=== PATIENT | female | born 1955 | race Caucasian/White ===

== ENCOUNTER → 2016-10-25 | Day surgery (SDC) | payer BC ==
[~2016-10-25] MED LIST: ACTOPLUS MET 151 TA2 PO; CINNAMON ALPHA1 EACH PO; DITROPAN5 MG PO; GINGER500 MG PO; METFORMIN PO; PROBIOTIC-DIGE1 EACH PO; TUMERIC PO; VITAMIN D400 UNI2 PO; VITAMIN E PO; [UNRECOGNIZED DRUG - OTHER] PO
--- NOTE | ~2016-10-25 | OR ---
Unit #: [id number] #: [id number] Patient: ALEISHA FERGUSON [id number] [address] [id number] MR#: [id number] NAME: ALEISHA FERGUSON. ROOM: Date of Procedure: 10/25/2016 Admission Date: 10/25/2016 Surgeon: Pierre Pena M.D. : 1955 Attending Physician: Pierre Pena M.D. Primary Care Physician: Kassandra Dooley M.D. OPERATIVE REPORT PREOPERATIVE DIAGNOSES 1. History of colonic polyps. 2. Screening colonoscopy. POSTOPERATIVE DIAGNOSES 1. History of colonic polyps. 2. Screening colonoscopy. PROCEDURE PERFORMED Colonoscopy to cecum. ANESTHESIA Monitored anesthesia care. FINDINGS The patient was found to have few scattered sigmoid diverticula. Mild internal hemorrhoids. SPECIMENS None. COMPLICATIONS None apparent. CONDITION The patient tolerated the procedure well. INDICATIONS FOR PROCEDURE The patient is a 61-year-old white female, who presents at this time for screening colonoscopy. She was found to have a tubular adenoma at 65 cm, 3 to 4 years ago. She presents at this time for evaluation by colonoscopy. DESCRIPTION OF PROCEDURE After obtaining informed consent, the patient was brought to the endoscopy suite and after adequate monitored anesthesia care, had the colonoscope placed through the anus and slowly advanced to the level of the cecum without difficulty with the lumen always in view. The cecum was normal as was the ileocecal valve. The ascending colon was normal as was the hepatic flexure, transverse colon, splenic flexure, and descending colon. In the sigmoid colon, there were few scattered sigmoid diverticula present. There were not very numerous and not very deep. The Unit #: [id number] #: [id number] Patient: ALEISHA FERGUSON rectosigmoid and rectum were all within normal limits. On retroflexing in the rectum to the anal rectal junction, the patient was found to have mild internal hemorrhoids. The scope was removed without difficulty. On digital examination, there was good sphincter tone. No masses palpable. The patient went from the endoscopy suite to the recovery area in stable condition. RECOMMENDATIONS Diverticular sheet given. High-fiber diet, lots of liquids, tucks or wipes p.r.n. Follow up as needed. Dictated by... Debbie Rico/lili TD: 10/26/2016 05:09 JOB #: [id number] CC: [facility] OPERATIVE REPORT Page 1 of 1 X Pierre Pena MD X PROCEDURE OPERATIVE NOTE
== END | disposition home or self-care (01) ==
LOC: COPS 05:51
DX: Z12.11 Encounter for screening for malignant neoplasm of colon (principal); K57.30 Diverticulosis of large intestine without perforation or abscess without bleeding; K64.8 Other hemorrhoids; E11.9 Type 2 diabetes mellitus without complications; K21.9 Gastro-esophageal reflux disease without esophagitis; G47.30 Sleep apnea, unspecified; Z86.010 Personal history of colon polyps; Z80.0 Family history of malignant neoplasm of digestive organs; Z88.8 Allergy status to other drugs, medicaments and biological substances; Z79.84 Long term (current) use of oral hypoglycemic drugs; Z79.899 Other long term (current) drug therapy; Z90.710 Acquired absence of both cervix and uterus; Z98.51 Tubal ligation status; Z98.890 Other specified postprocedural states
CPT/HCPCS: 82947; J2250